=== PATIENT | female | born 1955 | race African-American/Black ===

== ENCOUNTER 2018-08-16 17:48 | Emergency (ER) | payer OTHER ==
[2018-08-16 18:07] VITALS: BP 125/82; PULSE 61; TEMP 98.2; BMI 30.7
--- NOTE | 2018-08-16 18:36 | PDOC ---
History of Present Illness - General History Source: Patient - History of Present Illness Timing/Duration: reports: other Associated Symptoms: reports: cough <Dennis Davalos - Last Filed: 08/16/18 19:22> <Ankur Rivas - Last Filed: 08/28/18 08:42> - General Chief Complaint: Cold Symptoms Stated Complaint: COUGHING Time Seen by Provider: 08/16/18 18:34 Past History - Past Medical History Anemia: No Asthma: No Cancer: No Cardiac Disorders: No CVA: No COPD: No CHF: No Dementia: No Diabetes: No GI Disorders: No Disorders: No HTN: Yes Hypercholesterolemia: No Liver Disease: No Seizures: No Thyroid Disease: No - Surgical History Abdominal Surgery: No Appendectomy: No Cardiac Surgery: No Cholecystectomy: No Lung Surgery: No Neurologic Surgery: No Orthopedic Surgery: No - Immunization History Immunization Up to Date: Yes - Suicide/Smoking/Psychosocial Hx Smoking Status: No Smoking History: Never smoked Have you smoked in the past 12 months: No Number of Cigarettes Smoked Daily: 0 Information on smoking cessation initiated: No Hx Alcohol Use: No Drug/Substance Use Hx: No Substance Use Type: None Hx Substance Use Treatment: No <Dennis Davalos - Last Filed: 08/16/18 19:22> <Ankur Rivas - Last Filed: 08/28/18 08:42> - Past Medical History Allergies/Adverse Reactions: Allergies Allergy/AdvReac Type Severity Reaction Status Date / Time No Known Allergies Allergy Verified 08/16/18 17:56 Home Medications: Ambulatory Orders Azithromycin [Zithromax Tri-Pepito (3 DAYS) -] 500 mg PO DAILY #3 tablet 01/22/16 Ibuprofen 800 mg PO TID #21 tablet 11/23/16 Azithromycin [Zithromax 250mg Tablets -] 250 mg PO DAILY #6 tab 08/16/18 Review of Systems - Review of Systems Constitutional: No: Chills, Fever Respiratory: Yes: Cough. No: Shortness of Breath, Wheezing Cardiac (ROS): No: Chest Tightness <Dennis Davalos - Last Filed: 08/16/18 19:22> *Physical Exam - Vital Signs Last Vital Signs Temp Pulse Resp BP Pulse Ox 98.2 F 61 17 125/82 100 08/16/18 17:57 08/16/18 17:57 08/16/18 17:57 08/16/18 17:57 08/16/18 17:57 - Physical Exam Comments: 08/16/18 19:37 octavio comfortable, currently talking on cell phone General Appearance: Yes: Nourished, Appropriately Dressed. No: Apparent Distress HEENT: positive: Normal Voice Neck: positive: Supple Respiratory/Chest: positive: Wheezing (trace wheezing) Cardiovascular: positive: Regular Rate, S1, S2 Integumentary: positive: Dry, Warm Neurologic: positive: Fully Oriented, Alert, Normal Mood/Affect <Dennis Davalos - Last Filed: 08/16/18 19:22> - Vital Signs Last Vital Signs Temp Pulse Resp BP Pulse Ox 98.2 F 61 17 125/82 100 08/16/18 17:57 08/16/18 17:57 08/16/18 17:57 08/16/18 17:57 08/16/18 17:57 <Ankur Rivas - Last Filed: 08/28/18 08:42> Moderate Sedation - Procedure Monitoring Vital Signs: Procedure Monitoring Vital Signs Temperature 98.2 F 08/16/18 17:57 Pulse Rate 61 08/16/18 17:57 Respiratory Rate 17 08/16/18 17:57 Blood Pressure 125/82 08/16/18 17:57 O2 Sat by Pulse Oximetry (%) 100 08/16/18 17:57 <Dennis Davalos - Last Filed: 08/16/18 19:22> Medical Decision Making - Medical Decision Making 08/16/18 18:34 62 yo F, h/o HTN, former smoker (~>30 ppd, quit 12 years ago), asthma, p/w productive cough x 3 weeks. No hemoptysis, sob, CP, palpitation, leg pain/ swelling, f/c. Seen by pmd last week and prescribed predisone taper w/ no relief. Not given any meds for cough per pt. No CXR done See exam Cough x 3 weeks Former smoker Asthma S/p recent steroid taper Stable, in NAD w/ trace wheezing on exam, declines nebs here CXR neg for acute process -dc w/ supportive tx and zpack given sig tob hx -pmd f/u next week 08/16/18 19:36 <Dennis Davalos Last Filed: 08/16/18 19:22> *DC/Admit/Observation/Transfer <Dennis Davalos - Last Filed: 08/16/18 19:22> <Ankur Rivas - Last Filed: 08/28/18 08:42> Diagnosis at time of Disposition: Cough - Discharge Dispostion Disposition: HOME Condition at time of disposition: Good - Prescriptions Prescriptions: Azithromycin [Zithromax 250mg Tablets -] 250 mg PO DAILY #6 tab - Referrals Referrals: Mali Kent MD [Primary Care Provider] - - Patient Instructions Printed Discharge Instructions: Acute Bronchitis Additional Instructions: Take antibiotics as prescribed. Rest and plenty of fluids and purchase Coricidin [id number] for cough as this medication is safe in patient with high blood pressure. Please follow-up with your PMD next week - Post Discharge Activity
== END 2018-08-16 20:06 | disposition home or self-care (01) ==
LOC: JER 17:48
DX: R05 Cough (principal); I10 Essential (primary) hypertension; Z87.09 Personal history of other diseases of the respiratory system; Z87.891 Personal history of nicotine dependence
CPT/HCPCS: 71046-TC-FY; 99281-25; 99282-25

== ENCOUNTER 2020-03-08 05:24 | Day surgery (SDC) | payer OTHER ==
--- OUTSIDE RECORDS SUMMARY | 2020-02-16 14:12 | XMS ---
:1955 Author Organization [facility] Care Team Providers Name Role Phone ANTONIETA LINDA TEENA Unavailable Unavailable Re-disclosure Warning The records that you are about to access may contain information from federally- assisted alcohol or drug abuse programs. If such information is present, then the following federally mandated warning applies: This information has been disclosed to you from records protected by federal confidentiality rules (42 CFR part 2). The federal rules prohibit you from making any further disclosure of this information unless further disclosure is expressly permitted by the written consent of the person to whom it pertains or as otherwise permitted by 42 CFR part 2. A general authorization for the release of medical or other information is NOT sufficient for this purpose. The Federal rules restrict any use of the information to criminally investigate or prosecute any alcohol or drug abuse patient.The records that you are about to access may contain highly sensitive health information, the redisclosure of which is protected by Article 27-F of the [facility] Public Health law. If you continue you may haveaccess to information: Regarding HIV / AIDS; Provided by facilities licensed or operated by the [facility] Office of Mental Health; or Provided by the [facility] Office for People With Developmental Disabilities. If such information is present, then the following [facility] mandated warning applies: This information has been disclosed to you from confidential records which are protected by state law. State law prohibits you from making any further disclosure of this information without the specific written consent of the person to whom it pertains, or as otherwise permitted by law. Any unauthorized further disclosure in violation of state law may result in a fine or assisted sentence or both. A general authorization for the release of medical or other information is NOT sufficient authorization for further disclosure. Allergies and Adverse Reactions Type Description Substance Reaction Status Data Source(s ) No Known No Known Allergies No Known eCW3 ( [facility]) No Known No Known Allergies No Known eCW3 ( [facility]) No Known No Known Allergies No Known eCW3 ( [facility]) No Known No Known Allergies No Known eCW2 ( [facility]) Encounters Encounter Providers Location Date Indications Data Source(s ) Outpatient [facility] eCW3 ([facility] A28 [facility] 12:00:00 Care) AM EDT - 9 12:00:00 AM EDT Outpatient [facility] eCW3 ([facility] 12:00:00 Care) AM EDT - 9 12:00:00 AM EDT [facility] eCW2 ([facility] [address] 12:00:00 Care) AM EDT Outpatient [facility] eCW3 ([facility] [address] 12:00:00 Care) AM EDT - 9 12:00:00 AM EDT Emergency Attender: DIFF BREATHING [place] ANTONIETA [address] [place] [address], 11:00:00 Care TEENAAdmitter: AM EST [facility] [facility] Meeta Gold 06/11/2018 12:00: 00 eCW2 ([facility] EST Health Care ) [facility] [place] Wendy Gold 06/05/2018 12:00: 00 eCW2 ([facility] EST Health Care ) [facility] 06/05/2018 12:00: 00 eCW2 ([facility] AM EST Health Care ) Evelyn Hdznnate Zapatalyn Shellabarger 04/21/2018 12:00: 00 eCW2 ([facility] AM EST Health Care ) Addis Biju Hdznnate Zapatalyn Shellabarger 03/24/2018 12:00: 00 eCW2 ([facility] AM EDT Health Care ) Addis Biju Hdznnate Zapatarenetta Elizabethabarsocorro 03/13/2018 12:00: 00 eCW2 ([facility] AM EDT Health Care ) Addis Biju Hdznnate Zapatalyn Shellabarsocorro 02/27/2018 12:00: 00 eCW2 ([facility] AM EDT Health Care ) Addis Biju Hdznnate Zapatarenetta Elizabethabashayy 01/30/2018 12:00: 00 eCW2 ([facility] AM EDT Health Care ) Addis Biju Hdznnate Zapatarenetta Elizabethabashayy 01/30/2018 12:00: 00 eCW2 ([facility] AM EDT Health Care ) Addis Biju Hdznnate Zapatalyn Shellabarsocorro 01/22/2018 12:00: 00 eCW2 ([facility] AM EDT Health Care ) Addis Biju Hdznnate Zapatarenetta Elizabethabarsocorro 12/27/2017 12:00: 00 eCW2 ([facility] AM EDT Health Care ) Addis Biju Hdznnate Zapatarenetta Elizabethabarsocorro 12/23/2017 12:00: 00 eCW2 ([facility] AM EDT Health Care ) Addis Biju Hdznnate Zapatalyn Shellabarsocorro 11/15/2017 12:00: 00 eCW2 ([facility] AM EDT Health Care ) Evelyn Hdznnate Zapatalyn Shellabarsocorro 10/28/2017 12:00: 00 eCW2 ([facility] AM EDT Health Care ) Addis Biju Hdznnate Zapatalyn Shellabarsocorro 10/23/2017 12:00: 00 eCW2 ([facility] AM EDT Health Care ) Addis Biju Hdznnate Zapatarenetta Elizabethabarsocorro 10/17/2017 12:00: 00 eCW2 ([facility] AM EDT Health Care ) Evelyn Hdznnate Aguilaramado Elizabethabashayy 10/16/2017 12:00: 00 eCW2 ([facility] AM EDT Health Care ) Evelyn Hdznnate Zapatarenetta Elizabethabarsocorro 09/05/2017 12:00: 00 eCW2 ([facility] AM EDT Health Care ) Evelyn Hdznnate Zapatarenetta Elizabethabashayy 08/23/2017 12:00: 00 eCW2 ([facility] AM EDT Health Care ) Evelyn Hdznnate Zapatarenetta Elizabethabashayy 08/09/2017 12:00: 00 eCW2 ([facility] AM EDT Health Care ) Addis Biju Hdznnate Zapatarenetta Elizabethabashayy 07/10/2017 12:00: 00 eCW2 ([facility] AM EST Health Care ) Addis Biju Hdznnate Zapatarenetta Gold 06/18/2017 12:00: 00 eCW2 ([facility] AM EST Health Care ) Addis Biju Hdznnate Zapatarenetta Elizabethabashayy 05/22/2017 12:00: 00 eCW2 ([facility] AM EST Health Care ) Addis Biju Hdznnate Zapatarenetta Elizabethabashayy 05/21/2017 12:00: 00 eCW2 ([facility] AM EST Health Care ) Addis Biju Hdznnate Zapatarenetta Elizabethabashayy 04/09/2017 12:00: 00 eCW2 ([facility] AM EST Health Care ) Addis Biju Hdznnate Zapatarenetta Elizabethabashayy 03/20/2017 12:00: 00 eCW2 ([facility] AM EDT Health Care ) Addis Biju Hdznkers Wendy Elizabethabashayy 03/13/2017 12:00: 00 eCW2 ([facility] AM EDT Health Care ) Addis Biju Hdznnate Zapatarenetta Elizabethabarsocorro 03/01/2017 12:00: 00 eCW2 ([facility] AM EDT Health Care ) Addis Biju [place] Wendy Elizabethabashayy 02/21/2017 12:00: 00 eCW2 ([facility] AM EDT Health Care ) Addis Biju Hdznnate Zapatalyn Shellabarger 02/13/2017 12:00: 00 eCW2 ([facility] AM EDT Health Care ) Addis Biju Hdznnate Zapatalyn Shellabarger 02/12/2017 12:00: 00 eCW2 ([facility] AM EDT Health Care ) Addis Biju Hdznnate Zapatarenetta Elizabethabarsocorro 01/02/2017 12:00: 00 eCW2 ([facility] AM EDT Health Care ) Addis Biju Hdznnate Zapatalyn Shellabarsocorro 12/04/2016 12:00: 00 eCW2 ([facility] AM EDT Health Care ) Addis Biju Hdznnate Zapatarenetta Elizabethabashayy 11/05/2016 12:00: 00 eCW2 ([facility] AM EDT Health Care ) Addis Biju Hdznnate Zapatarenetta Elizabethabashayy 10/30/2016 12:00: 00 eCW2 ([facility] AM EDT Health Care ) Addis Biju Hdznnate Zapatalyn Shellabarsocorro 10/02/2016 12:00: 00 eCW2 ([facility] AM EDT Health Care ) Addis Biju Hdznnate Zapatarenetta Elizabethabashayy 09/03/2016 12:00: 00 eCW2 ([facility] AM EDT Health Care ) Addis Biju Hdznnate Zapatarenetta Elizabethabarsocorro 08/14/2016 12:00: 00 eCW2 ([facility] AM EDT Health Care ) Addis Biju Hdznnate Zapatalyn Shellabarsocorro 07/31/2016 12:00: 00 eCW2 ([facility] AM EST Health Care ) Addis Biju Hdznnate Zapatalyn Shellabarsocorro 07/20/2016 12:00: 00 eCW2 ([facility] AM EST Health Care ) Addis Biju Hdznkers Wendy Shellabarsocorro 06/20/2016 12:00: 00 eCW2 ([facility] AM EST Health Care ) Addis Biju [place] Wendy Elizabethabarsocorro 05/30/2016 12:00: 00 eCW2 ([facility] AM EST Health Care ) Evelyn Hdznnate Zapatarenetta Elizabethabarsocorro 05/14/2016 12:00: 00 eCW2 ([facility] AM EST Health Care ) Evelyn Hdznnate Zapatarenetta Elizabethabarsocorro 04/13/2016 12:00: 00 eCW2 ([facility] AM EST Health Care ) Evelyn Hdznnate Zapatarenetta Elizabethabashayy 04/12/2016 12:00: 00 eCW2 ([facility] AM EST Health Care ) Addis Biju Hdznnate Zapatarenetta Elizabethabashayy 04/05/2016 12:00: 00 eCW2 ([facility] AM EST Health Care ) Evelyn Hdznnate Zapatarenetta Elizabethabashayy 03/28/2016 12:00: 00 eCW2 ([facility] AM EDT Health Care ) Addis Biju Hdznnate Zapatarenetta Elizabethabashayy 03/06/2016 12:00: 00 eCW2 ([facility] AM EDT Health Care ) Addis Biju Hdznnate Zapatarenetta Elizabethabashayy 02/06/2016 12:00: 00 eCW2 ([facility] AM EDT Health Care ) Addis Biju Hdznnate Zapatarenetta Elizabethabashayy 01/04/2016 12:00: 00 eCW2 ([facility] AM EDT Health Care ) Addis Biju Hdznnate Zapatarenetta Elizabethabashayy 12/30/2015 12:00: 00 eCW2 ([facility] AM EDT Health Care ) Addis Biju [place] Wendy Elizabethabashayy 12/27/2015 12:00: 00 eCW2 ([facility] AM EDT Health Care ) Addis Biju Hdznnate Zapatarenetta Elizabethabarsocorro 12/16/2015 12:00: 00 eCW2 ([facility] AM EDT Health Care ) Evelyn Hdznkermarie Elizabethabashayy 12/08/2015 12:00: 00 eCW2 ([facility] AM EDT Health Care ) Evelyn Ivy [place] Elizabethabashayy 12/06/2015 12:00: 00 eCW2 ([facility] AM EDT Health Care ) Addis Biju Hdznkermarie Cardenasger 12/05/2015 12:00: 00 eCW2 ([facility] AM EDT Health Care ) Evelyn Hdznnate Zapatarenetta Elizabethabarsocorro 11/30/2015 12:00: 00 eCW2 ([facility] AM EDT Health Care ) Evelyn Hdznnate Zapatarenetta Elizabethabarsocorro 10/31/2015 12:00: 00 eCW2 ([facility] AM EDT Health Care ) Evelyn Hdznnate Zapatarenetta Elizabethabashayy 10/18/2015 12:00: 00 eCW2 ([facility] AM EDT Health Care ) Evelyn Hdznnate Zapatarenetta Elizabethabashayy 09/28/2015 12:00: 00 eCW2 ([facility] AM EDT Health Care ) Addis Biju Hdznnate Zapatarenetta Elizabethabashayy 09/27/2015 12:00: 00 eCW2 ([facility] AM EDT Health Care ) Addis Biju Hdznnate Zapatarenetta Elizabethabashayy 08/18/2015 12:00: 00 eCW2 ([facility] AM EDT Health Care ) Addis Biju Hdznnate Zapatarenetta Elizabethabashayy 07/26/2015 12:00: 00 eCW2 ([facility] AM EST Health Care ) Addis Biju Hdznnate Zapatarenetta Elizabethabashayy 07/13/2015 12:00: 00 eCW2 ([facility] AM EST Health Care ) Addis Biju Hdznnate Zapatarenetta Elizabethabashayy 06/08/2015 12:00: 00 eCW2 ([facility] AM EST Health Care ) Addis Biju Hdznnate Zapatalyn Shellabarsocorro 05/09/2015 12:00: 00 eCW2 ([facility] AM EST Health Care ) Addis Biju Hdznkers Wendy Elizabethabashayy 03/29/2015 12:00: 00 eCW2 ([facility] AM EST Health Care ) Addis Biju Hdznkers Wendy Elizabethabarsocorro 02/23/2015 12:00: 00 eCW2 ([facility] AM EDT Health Care ) Addis Biju Hdznkers Wendy Elizabethabashayy 02/11/2015 12:00: 00 eCW2 ([facility] AM EDT Health Care ) Addis Biju Hdznnate Aguilarn Shellabarsocorro 02/11/2015 12:00: 00 eCW2 ([facility] AM EDT Health Care ) Addis Biju Hdznnate Zapatalyn Shellabarsocorro 01/25/2015 12:00: 00 eCW2 ([facility] AM EDT Health Care ) Addis Biju Hdznnate Zaaptarenetta Elizabethabashayy 01/25/2015 12:00: 00 eCW2 ([facility] AM EDT Health Care ) [facility] Wendy Shellabarger 01/11/2015 12:00: 00 eCW2 ([facility] AM EDT Health Care ) Addis Biju Hdznnate Zapatarenetta Elizabethabashayy 12/28/2014 12:00: 00 eCW2 ([facility] EDT Health Care ) Addis Biju [place] Zapatarenetta Elizabethabashayy 11/23/2014 12:00: 00 eCW2 ([facility] AM EDT Health Care ) Addis Biju Hdznnate Zapatarenetta Elizabethabashayy 11/18/2014 12:00: 00 eCW2 ([facility] EDT Health Care ) Addis Biju Hdznnate Zapatarenetta Elizabethabashayy 07/29/2014 12:00: 00 eCW2 ([facility] AM EST Health Care ) Addis Biju Hdznnate Zapatarenetta Elizabethabashayy 07/19/2014 12:00: 00 eCW2 ([facility] AM EST Health Care ) Addis Biju Hdznnate Zapatalyn Shellabashayy 07/14/2014 12:00: 00 eCW2 ([facility] AM EST Health Care ) [facility] Wendy Shellabarsocorro 07/01/2014 12:00: 00 eCW2 ([facility] AM EST Health Care ) [facility] [place] Zapatarenetta Elizabethabashayy 06/08/2014 12:00: 00 eCW2 ([facility] AM EST Health Care ) Addis Biju [place] Wendy Elizabethabashayy 05/25/2014 12:00: 00 eCW2 ([facility] AM EST Health Care ) Evelyn Aguilarn Shellabarsocorro 04/14/2014 12:00: 00 eCW2 ([facility] AM EST Health Care ) Evelyn Aguilaramado Elizabethabarsocorro 04/13/2014 12:00: 00 eCW2 ([facility] AM EST Health Care ) Evelyn Hdznnate Zapatarenetta Elizabethabashayy 03/15/2014 12:00: 00 eCW2 ([facility] AM EDT Health Care ) Addis Biju Zapatarenetta Elizabethabarsocorro 03/12/2014 12:00: 00 eCW2 ([facility] AM EDT Health Care ) Evelyn Hdznnate Zapatarenetta Elizabethabashayy 12/22/2013 12:00: 00 eCW2 ([facility] AM EDT Health Care ) Addis Biju Hdznnate Zapatarenetta Elizabethabashayy 12/21/2013 12:00: 00 eCW2 ([facility] AM EDT Health Care ) Addis Biju Hdznnate Zapatarenetta Elizabethabashayy 11/23/2013 12:00: 00 eCW2 ([facility] AM EDT Health Care ) Addis Biju Hdznnate Zapatarenetta Elizabethabashayy 11/12/2013 12:00: 00 eCW2 ([facility] AM EDT Health Care ) Addis Biju Hdznnate Zapatarenetta Elizabethabashayy 08/03/2013 12:00: 00 eCW2 ([facility] AM EDT Health Care ) Addis Biju Hdznnate Zapatarenetta Elizabethabashayy 07/29/2013 12:00: 00 eCW2 ([facility] AM EST Health Care ) Addis Biju Hdznnate Zapatalyn Shellabarsocorro 02/20/2013 12:00: 00 eCW2 ([facility] AM EDT Health Care ) Addis Biju Hdznnate Zapatarenetta Elizabethabarsocorro 11/13/2012 12:00: 00 eCW2 ([facility] AM EDT Health Care ) Addis Biju Hdznnate Zapatarenetta Elizabethabashayy 11/12/2012 12:00: 00 eCW2 ([facility] AM EDT Health Care ) Addis Biju Hdznnate Zapatarenetta Elizabethabashayy 09/29/2012 12:00: 00 eCW2 ([facility] AM EDT Health Care ) Evelyn Zapatarenetta Elizabethabashayy 09/15/2012 12:00: 00 eCW2 ([facility] AM EDT Health Care ) Evelyn Hdznnate Zapatarenetta Elizabethabashayy 08/25/2012 12:00: 00 eCW2 ([facility] AM EDT Health Care ) Addis Biju Zapatarenetta Gold 08/25/2012 12:00: 00 eCW2 ([facility] AM EDT Health Care ) Evelyn Hdznnate Zapatarenetta Gold 07/07/2012 12:00: 00 eCW2 ([facility] AM EST Health Care ) Addis Biju Hdznnate Zapatarenetta Gold 06/02/2012 12:00: 00 eCW2 ([facility] AM EST Health Care ) Addis Biju Hdznnate Zapatarenetta Gold 05/30/2012 12:00: 00 eCW2 ([facility] AM EST Health Care ) Addis Biju Hdznnate Zapatarenetta Elizabethabashayy 05/29/2012 12:00: 00 eCW2 ([facility] AM EST Health Care ) Addis Biju Hdznnate Zapatarenetta Elizabethabashayy 05/12/2012 12:00: 00 eCW2 ([facility] AM EST Health Care ) Addis Biju [place] Wendy Elizabethabashayy 05/05/2012 12:00: 00 eCW2 ([facility] AM EST Health Care ) Addis Biju Hdznnate Zapatarenetta Elizabethabashayy 04/14/2012 12:00: 00 eCW2 ([facility] AM EST Health Care ) Addis Biju Hdznkers Wendy Elizabethabashayy 04/11/2012 12:00: 00 eCW2 ([facility] AM EST Health Care ) Addis Biju Hdznkermarie Elizabethabashayy 04/10/2012 12:00: 00 eCW2 ([facility] AM EST Health Care ) Addis Biju Hdznkermarie Elizabethabashayy 04/10/2012 12:00: 00 eCW2 ([facility] AM EST Health Care ) Evelyn Hdznnate Zapatalyn Shellabarsocorro 12/10/2011 12:00: 00 eCW2 ([facility] AM EDT Health Care ) Evelyn Hdznnate Zapatalyn Shellabarsocorro 11/30/2011 12:00: 00 eCW2 ([facility] EDT Health Care ) Evelyn Hdznnate Zapatarenetta Elizabethabashayy 11/22/2011 12:00: 00 eCW2 ([facility] AM EDT Health Care ) Evelyn Hdznnate Zapatalyn Shellabarsocorro 11/20/2011 12:00: 00 eCW2 ([facility] EDT Health Care ) Addis Biju Hdznnate Zapatarenetta Elizabethabashayy 11/14/2011 12:00: 00 eCW2 ([facility] EDT Health Care ) Addis Biju Hdznnate Zapatarenetta Elizabethabashayy 11/10/2011 12:00: 00 eCW2 ([facility] AM EDT Health Care ) Addis Biju Hdznnate Zapatarenetta Elizabethabarsocorro 07/25/2011 12:00: 00 eCW2 ([facility] AM EST Health Care ) Addis Biju Hdznnate Zapatarenetta Elizabethabashayy 05/31/2011 12:00: 00 eCW2 ([facility] EST Health Care ) Addis Biju Hdznnate Zapatarenetta Elizabethabashayy 03/29/2011 12:00: 00 eCW2 ([facility] AM EDT Health Care ) Addis Biju Hdznnate Zapatalyn Shellabarsocorro 11/23/2010 12:00: 00 eCW2 ([facility] AM EDT Health Care ) Addis Biju Hdznnate Zapatalyn Shellabarsocorro 11/21/2010 12:00: 00 eCW2 ([facility] AM EDT Health Care ) Addis Biju Hdznkers Wendy Shellabarsocorro 11/02/2010 12:00: 00 eCW2 ([facility] AM EDT Health Care ) Addis Biju [place] Wendy Elizabethabashayy 11/02/2010 12:00: 00 eCW2 ([facility] AM EDT Health Care ) Evelyn Hdznnate Zapatalyn Shellabarsocorro 10/11/2010 12:00: 00 eCW2 ([facility] AM EDT Health Care ) Addis Biju Hdznnate Zapatarenetta Elizabethabarger 09/18/2010 12:00: 00 eCW2 ([facility] AM EDT Health Care ) Evelyn Hdznnate Zapatarenetta Elizabethabashayy 09/18/2010 12:00: 00 eCW2 ([facility] AM EDT Health Care ) Addis Biju Hdznnate Zapatarenetta Elizabethabarsocorro 08/24/2010 12:00: 00 eCW2 ([facility] AM EDT Health Care ) Addis Biju Hdznnate Zapatarenetta Elizabethabashayy 06/23/2010 12:00: 00 eCW2 ([facility] AM EST Health Care ) Addis Biju Hdznnate Zapatarenetta Elizabethabashayy 06/20/2010 12:00: 00 eCW2 ([facility] AM EST Health Care ) Addis Biju Hdznnate Zapatarenetta Elizabethabashayy 05/31/2010 12:00: 00 eCW2 ([facility] AM EST Health Care ) Addis Bjiu Hdznnate Zapatarenetta Elizabethabashayy 05/17/2010 12:00: 00 eCW2 ([facility] AM EST Health Care ) Addis Biju Hdznnate Zapatarenetta Elizabethabashayy 05/15/2010 12:00: 00 eCW2 ([facility] AM EST Health Care ) Addis Biju Hdznnate Zapatalyn Shellabarsocorro 04/27/2010 12:00: 00 eCW2 ([facility] AM EST Health Care ) Addis Biju Hdznnate Zapatalyn Shellabarsocorro 04/26/2010 12:00: 00 eCW2 ([facility] AM EST Health Care ) Addis Biju Hdznkermarie Elizabethabarsocorro 04/04/2010 12:00: 00 eCW2 ([facility] AM EST Health Care ) Addis Biju [place] Nguyen Shellabashayy 03/31/2010 12:00: 00 eCW2 ([facility] AM EDT Health Care ) Addis Biju Aguilarn Shellabarger 03/13/2010 12:00: 00 eCW2 ([facility] AM EDT Health Care ) Addis Biju Aguilaramado Elizabethabarger 03/10/2010 12:00: 00 eCW2 ([facility] AM EDT Health Care ) Evelyn Hdznnate Aguilaramado Elizabethabarsocorro 01/17/2010 12:00: 00 eCW2 ([facility] AM EDT Health Care ) Addis Biju Aguilaramado Elizabethabarsocorro 12/28/2009 12:00: 00 eCW2 ([facility] AM EDT Health Care ) Addis Biju Hdznnate Zapatarenetta Elizabethabarsocorro 12/14/2009 12:00: 00 eCW2 ([facility] AM EDT Health Care ) Addis Biju Hdznnate Zapatarenetta Elizabethabarsocorro 12/09/2009 12:00: 00 eCW2 ([facility] AM EDT Health Care ) Addis Biju Hdznnate Zapatarenetta Elizabethabarsocorro 10/20/2009 12:00: 00 eCW2 ([facility] AM EDT Health Care ) Addis Biju Hdznnate Aguilarn Shellabarsocorro 09/22/2009 12:00: 00 eCW2 ([facility] AM EDT Health Care ) Addis Biju Hdznnate Zapatarenetta Elizabethabarsocorro 09/20/2009 12:00: 00 eCW2 ([facility] AM EDT Health Care ) Addis Biuj Hdznnate Zapatarenetta Elizabethabarsocorro 09/14/2009 12:00: 00 eCW2 ([facility] AM EDT Health Care ) Addis Biju Hdznnate Zpaatalyn Shellabarsocorro 09/14/2009 12:00: 00 eCW2 ([facility] AM EDT Health Care ) Addis Biju Hdznnate Zapatalyn Shellabarsocorro 09/13/2009 12:00: 00 eCW2 ([facility] AM EDT Health Care ) Addis Biju Hdznnate Zapatalyn Shellabarsocorro 09/12/2009 12:00: 00 eCW2 ([facility] AM EDT Health Care ) Addis Biju Hdznnate Elizabethabarger 09/08/2009 12:00: 00 eCW2 ([facility] Health Care ) Evelyn Elizabethabarger 08/18/2009 12:00: 00 eCW2 ([facility] Health Care ) Addis Biju Elizabethabarger 07/15/2009 12:00: 00 eCW2 ([facility] ) Addis Biju Elizabethabarsocorro 07/04/2009 12:00: 00 eCW2 ([facility] ) [facility] Meeta Elizabethabarger 07/04/2009 12:00: 00 eCW2 ([facility] ) Addis Biju Elizabethabarger 06/21/2009 12:00: 00 eCW2 ([facility] ) Addis Biju Elizabethabarsocorro 05/06/2009 12:00: 00 eCW2 ([facility] ) Addis Biju Nguyen Shellabarsocorro 02/21/2009 12:00: 00 eCW2 ([facility] ) [facility] Meeta Elizabethabarsocorro 12/06/2008 12:00: 00 eCW2 ([facility] ) Ruben Aguilaramado Elizabethabarger 11/18/2008 12:00:00 eCW2 ([facility] ) Addis Biju Nguyen Shellabarger 11/09/2008 12:00: 00 eCW2 ([facility] ) Immunizations Vaccine Date Status Description Data Source(s) As of January 1999, a 06/20/2010 completed eCW3 ([facility] 2-dose hepatitis B 08:12:17 PM [facility]) schedule for adolescents (11-15 year olds) was FDA approved for [employer]'s Recombivax HB adult formulation. Use code 43 for the 2-dose. This code should be used for any use of standard adult formulation of hepatitis B vaccine. Tdap 06/20/2010 completed eCW3 ([place] [facility] 03:10:44 PM [facility] Health Care) Novel [id number] completed eCW3 ([facility]) No Known Immunizations completed eCW2 ([facility]) Medications Medication Brand Start Product Dose Route [facility] Hospital Indications Reaction Description Data Name Date Form Instructions Instructions Source(s) Tessalon UNK .0 active Tessalon eCW 3 Perles 100 2018 {caps [place]les 100 ([facility] MG 12:00: ule_a MG [place] 00 AM s_nee Health EST ded} Care) Trazodone Trazod .0 active Trazodone eCW3 Hydrochlori one 2018 {tabl HCl 150 MG ( [place] de 150 MG HCl 12:00: et_at [place] Oral Tablet 150 MG 00 AM _bedt Heal th Trazodone EST chelita} Care) HCl 150 MG Trazodone UNK .0 active Trazodone e CW3 HCl 150 MG 2018 {tabl HCl 150 MG ([facility] 12:00: et_at [place] 00 AM _bedt Health EST chelita} Care) Prednisone Predni .0 active PredniSO NE eCW3 50 MG Oral SONE 2018 {tabl 50 mg ([place] Tablet 50 mg 12:00: et} [place] PredniSONE 00 AM Health 50 mg EDT Care) gabapentin Neuron .0 active Neuronti n eCW3 100 MG Oral tin 2017 {caps 100 mg ([place] Capsule 100 mg 12:00: ule} [place] [Neurontin] 00 AM Health Neurontin EDT Care) 100 mg Ibuprofen Ibupro 02/27/ active 1 tablet eCW2 600 MG Oral fen 2018 with food or ([place] Tablet 600 MG 12:00: milk as [place] 00 AM needed Health EDT Care) gabapentin Neuron 02/27/ active 1 capsul e eCW2 100 MG Oral tin 2018 ([place] Capsule 100 mg 12:00: [place] [Neurontin] 00 AM Health Neurontin EDT Care) 100 mg Ibuprofen Ibupro 02/27/ active Ibuprofen eCW3 600 MG Oral fen 2018 600 MG ([place] Tablet 600 MG 12:00: [place] 00 AM Health EDT Care) Acetaminoph Acetam 02/27/ active 2 table t as eCW2 en 500 MG inophe 2018 needed ([place] Oral Tablet n 500 12:00: [place] Acetaminoph mg 00 AM Health en 500 mg EDT Care) Acetaminoph Acetam 2.0 active Acetami nophe eCW3 en 500 MG inophe 2018 {tabl n 500 mg ([facility] Oral Tablet n 500 12:00: et_as [place] [facility] Acetaminoph mg 00 AM _need Health en 500 mg EDT ed} Care) Estrogens, Premar 08/23/ active 1 tablet eCW2 Conjugated in 0.3 2018 ([place] (SNF) 0.3 MG 12:00: [place] MG Oral 00 AM Health Tablet EDT Care) [Premarin] Premarin 0.3 MG Estrogens, Premar 1.0 active Premarin 0.3 eCW3 Conjugated in 0.3 2018 {tabl MG ([place] (SNF) 0.3 MG 12:00: et} [place] MG Oral 00 AM Health Tablet EDT Care) [Premarin] Premarin 0.3 MG Atenolol 50 Atenol 1.0 active Atenolo l-Chl eCW3 MG / ol-Chl 2018 {tabl orthalidone ([place] Chlorthalid orthal 12:00: et} 50-25 MG [place] one 25 MG idone 00 AM Health Oral Tablet 50-25 EST Care) Atenolol-Ch MG lorthalidon e 50-25 MG valsartan Valsar .0 active Valsartan eCW3 160 MG Oral rodríguez 2018 {tabl 160 MG ([place] Tablet 160 MG 12:00: et} [place] Valsartan 00 AM Health 160 MG EST Care) Atenolol-Ch UNK .0 active Atenolol- Chl eCW3 lorthalidon 2018 {tabl orthalidone ([place] e 50-25 MG 12:00: et} 50-25 MG Kim[place] er 00 AM Health EST Care) Atenolol 50 Atenol 07/10/ active 1 table t eCW2 MG / ol-Chl 2018 ([place] Chlorthalid orthal 12:00: [place] r one 25 MG idone 00 AM Health Oral Tablet 50-25 EST Care) Atenolol-Ch MG lorthalidon e 50-25 MG Atenolol 50 Atenol 1.0 active Atenolo l-Chl eCW3 MG / ol-Chl 2018 {tabl orthalidone ([place] Chlorthalid orthal 12:00: et} 50-25 MG [place] one 25 MG idone 00 AM Health Oral Tablet 50-25 EST Care) Atenolol-Ch MG lorthalidon e 50-25 MG Valsartan UNK .0 active Valsartan e CW3 160 MG 2018 {tabl 160 MG ([place] 12:00: et} [place] 00 AM Health EST Care) valsartan Valsar 07/10/ active 1 tablet eCW2 160 MG Oral rodríguez 2017 ([place] Tablet 160 MG 12:00: [place] Valsartan 00 AM Health 160 MG EST Care) benzonatate Tessal 03/01/ active 1 capsu le as eCW2 100 MG Oral on 2016 needed ([place] Capsule Perles 12:00: [place] [Tessalon 100 mg 00 AM Health Perles] EDT Care) Tessalon Perles 100 mg Albuterol Ipratr 03/01/ active 3 ml eCW2 0.833 MG/ML opium- 2016 ([place] / [place] 12:00: [place] Ipratropium rol 00 AM Health Ceres 0.5-2. EDT Care) 0.167 MG/ML 5 (3) Inhalant MG/3ML Solution Ipratropium -Albuterol 0.5-2.5 (3) MG/3ML benzonatate Tessal .0 active Tessalo n eCW3 100 MG Oral on 2016 {caps Perles 100 ( [place] Capsule Perles 12:00: ule_a mg [place] [Tessalon 100 mg 00 AM s_nee Health Perles] EDT ded} Care) Tessalon Perles 100 mg Albuterol Alb[place] 03/01/ active 3 ml as e CW2 0.83 MG/ML rol 2017 needed ([place] Inhalant Sulfat 12:00: [place] Solution e (2.5 00 AM Health Albuterol MG/3ML EDT Care) Sulfate ) (2.5 0.083% MG/3ML) 0.083% Albuterol [place] 3.0 active Albuterol eCW3 0.83 MG/ML rol 2017 {ml_a Sulfate (2.5 ([place] Inhalant Sulfat 12:00: s_nee MG/3ML) [place] Solution e (2.5 00 AM ded} 0.083% Health Albuterol MG/3ML EDT Care) Sulfate ) (2.5 0.083% MG/3ML) 0.083% Albuterol Ipratr 3.0 active Ipratropi um- eCW3 0.833 MG/ML opium- 2016 {ml} Albuterol ( [place] / [place] 12:00: 0.5-2.5 (3) [facility] [facility] Ipratropium rol 00 AM MG/3ML Healt h Ceres 0.5-2. EDT Care) 0.167 MG/ML 5 (3) Inhalant MG/3ML Solution Ipratropium -Albuterol 0.5-2.5 (3) MG/3ML benzonatate Tessal 02/13/ active 1 capsu le as eCW2 100 MG Oral on 2017 needed ([place] Capsule Perles 12:00: [place] [Tessalon 100 mg 00 AM Health Perles] EDT Care) Tessalon Perles 100 mg benzonatate Tessal 1.0 active Tessalo n eCW3 100 MG Oral on 2017 {caps Perles 100 ( [place] Capsule Perles 12:00: ule_a mg [place] [Tessalon 100 mg 00 AM s_nee Health Perles] EDT ded} Care) Tessalon Perles 100 mg Albuterol Ipratr 3.0 active Ipratropi um- eCW3 0.833 MG/ML opium- 2016 {ml} Albuterol ( [place] / [place] 12:00: 0.5-2.5 (3) [facility] Ipratropium rol 00 AM MG/3ML Healt h Ceres 0.5-2. EDT Care) 0.167 MG/ML 5 (3) Inhalant MG/3ML Solution Ipratropium -Albuterol 0.5-2.5 (3) MG/3ML Prednisone Predni 03/21/ 1.0 active PredniSO NE eCW3 20 MG Oral SONE 2016 {tabl 20 MG ([place] Tablet 20 MG 12:00: et} [place] PredniSONE 00 AM Health 20 MG EDT Care) Prednisone Predni 08/14/ suspend 1 table t eCW2 20 MG Oral SONE 2016 ed ([place] Tablet 20 MG 12:00: [place] PredniSONE 00 AM Health 20 MG EDT Care) 200 ACTUAT Ventol 08/14/ active 2 puffs as eCW2 Albuterol in HFA 2017 needed ([place] 0.09 108 12:00: [place] MG/ACTUAT (90 00 AM Health Metered Base) EDT Care) Dose MCG/AC Inhaler T [Ventolin] Ventolin HFA 108 (90 Base) MCG/ACT 200 ACTUAT Ventol 08/14/ 2.0 active Ventolin HFA eCW3 Albuterol in HFA 2016 {puff 108 (90 ([facility] 0.09 108 12:00: s_as_ Base) [place] MG/ACTUAT (90 00 AM neede MCG/ACT Healt h Metered Base) EDT d} Care) Dose MCG/AC Inhaler T [Ventolin] Ventolin HFA 108 (90 Base) MCG/ACT Albuterol Ipratr 08/14/ active 3 ml eCW2 0.833 MG/ML opium- 2016 ([place] / [place] 12:00: [place] Ipratropium rol 00 AM Health Ceres 0.5-2. EDT Care) 0.167 MG/ML 5 (3) Inhalant MG/3ML Solution Ipratropium -Albuterol 0.5-2.5 (3) MG/3ML Loratadine Clarit 07/20/ active 1 tablet eCW2 10 MG Oral in 2016 ([place] Tablet MG 12:00: [place] [Claritin] 00 AM Health Claritin 10 EST Care) MG Loratadine Clarit 07/20/ 1.0 active Claritin 10 eCW3 10 MG Oral in 2016 {tabl MG ([place] Tablet MG 12:00: et} [place] [Claritin] 00 AM Health Claritin 10 EST Care) MG olopatadine Patano 11/23/ suspend 1 drop into eCW2 1 MG/ML l 0.1 2014 ed affected eye ([facility] Ophthalmic % 12:00: [place] Solution 00 AM Health [Patanol] EDT Care) Patanol 0.1 % Temazepam Temaze 11/23/ active 1 capsule at eCW2 15 MG Oral julien 15 2014 bedtime as ( [place] Capsule MG 12:00: needed [place] 00 AM Health EDT Care) Temazepam Temaze 1.0 active Temazepam 15 eCW3 15 MG Oral julien 15 2014 {caps MG ([place] Capsule MG 12:00: ule_a [place] 00 AM t_bed Health EDT time_ Care) as_ne eded} Temazepam Temaze 1.0 active Temazepam 15 eCW3 15 MG Oral julien 15 2014 {caps MG ([place] Capsule MG 12:00: ule_a [place] 00 AM t_bed Health EDT time_ Care) as_ne eded} olopatadine Patano 1.0 active Patanol 0.1 eCW3 1 MG/ML l 0.1 2014 {drop % ([place] Ophthalmic % 12:00: _into [place] Solution 00 AM _affe Health [Patanol] EDT cted_ Care) Patanol 0.1 eye} % Temazepam UNK .0 active Temazepam 1 5 eCW3 15 MG 2014 {caps MG ([place] 12:00: ule_a [place] 00 AM t_bed Health EDT time_ Care) as_ne eded} Ketotifen Ketoti 05/25/ active 1 drop in to eCW2 0.25 MG/ML fen 2013 affected eye ( [place] Ophthalmic Fumara 12:00: [place] Solution te 00 AM Health Ketotifen 0.025 EST Care) Fumarate % 0.025 % Ketotifen Ketoti 1.0 active Ketotifen eCW3 0.25 MG/ML fen 2013 {drop Fumarate ([place] Ophthalmic [place] 12:00: _into 0.025 % R i[facility] Solution te 00 AM _affe Health Ketotifen 0.025 EST cted_ Care) Fumarate % eye} 0.025 % Omeprazole Omepra 02/20/ suspend 1 capsu le eCW2 20 MG zole 2013 ed ([place] Delayed 20 mg 12:00: [place] Release 00 AM Health Oral EDT Care) Capsule Omeprazole 20 mg Omeprazole Omepra 1.0 active Omeprazo le eCW3 20 MG zole 2012 {caps 20 mg ([place] Delayed 20 mg 12:00: ule} [place] Release 00 AM Health Oral EDT Care) Capsule Omeprazole 20 mg Hydrocodone UNK 08/25/ suspend 1-2 tab let eCW2 -Acetaminop 2012 ed as needed ( deidraon hen 5-500 12:00: for pain [facility] r MG 00 AM Health EDT Care) Hydrocodone UNK 08/25/ active Hydrocodo ne- eCW3 -Acetaminop 2012 Acetaminophe ([place] hen 5-500 12:00: n 5-500 MG Ri beka MG 00 AM Health EDT Care) 120 ACTUAT Floven .0 active Flovent HFA eCW3 Fluticasone t HFA 2011 {puff 220 MCG/ACT ([place] propionate 220 12:00: } [place] 0.22 MCG/AC 00 AM Health MG/ACTUAT T EST Care) Metered Dose Inhaler [Flovent] Flovent HFA 220 MCG/ACT 120 ACTUAT Floven 04/14/ active 1 puff e CW2 Fluticasone t HFA 2011 ([place] propionate 220 12:00: [place] 0.22 MCG/AC 00 AM Health MG/ACTUAT T EST Care) Metered Dose Inhaler [Flovent] Flovent HFA 220 MCG/ACT gabapentin Gabape 04/14/ suspend 1 capsu le eCW2 300 MG Oral ntin 2011 ed ([place] Capsule 300 MG 12:00: [place] Gabapentin 00 AM Health 300 MG EST Care) Multi-Vitam Multi- 1.0 active Multi-V itami eCW3 in - Vitami 2011 {tab( n - ([place] n - 12:00: s)} [place] 00 AM Health EDT Care) Flonase 50 Flonas 2.0 active Flonase 50 eCW3 MCG/ACT e 50 2011 {puff MCG/ACT ([place] MCG/AC 12:00: s_in_ [place] T 00 AM each_ Health EDT nostr Care) il} 200 ACTUAT Ventol 11/29/ suspend 2 puffs eCW2 Albuterol in HFA 2011 ed ([place] 0.09 108 12:00: [place] MG/ACTUAT (90 00 AM Health Metered Base) EDT Care) Dose MCG/AC Inhaler T [Ventolin] Ventolin HFA 108 (90 Base) MCG/ACT Calcium 600 Calciu 11/29/ 1.0 active Calcium 600 eCW3 + D 600-400 m 600 2011 {tabl + D 600-400 ([place] MG-UNIT + D 12:00: et} MG-UNIT [place] 600-40 00 AM Health 0 EDT Care) MG-UNI T Calcium 600 Calciu 11/29/ active 1 table t eCW2 + D 600-400 m 600 2011 ([place] MG-UNIT + D 12:00: [place] 600-40 00 AM Health 0 EDT Care) MG-UNI T 200 ACTUAT Ventol 11/29/ 2.0 active Ventolin HFA eCW3 Albuterol in HFA 2011 {puff 108 (90 ([place] 0.09 108 12:00: s} Base) [place] MG/ACTUAT (90 00 AM MCG/ACT Health Metered Base) EDT Care) Dose MCG/AC Inhaler T [Ventolin] Ventolin HFA 108 (90 Base) MCG/ACT Multi-Vitam Multi- 11/29/ active 1 tab(s ) eCW2 in - Vitami 2011 ([place] - 12:00: [place] 00 AM Health EDT Care) Prempro Prempr 1.0 active Prempro eCW 3 0.3-1.5 MG o 2011 {tabl 0.3-1.5 MG ([place] 0.3-1. 12:00: et} [place] 5 MG 00 AM Health EDT Care) Flonase 50 Flonas 11/29/ active 2 puffs in eCW2 MCG/ACT e 50 2011 each nostril ([place] MCG/AC 12:00: [place] T 00 AM Health EDT Care) Prempro Prempr 11/29/ active 1 tablet eC W2 0.3-1.5 MG o 2011 ([place] 0.3-1. 12:00: [place] 5 MG 00 AM Health EDT Care) NEBULIZER UNK 09/08/ active NEBULIZER e CW3 2009 ([place] 12:00: [place] 00 AM Health EDT Care) nebulizer UNK 09/08/ suspend as directe d eCW2 2009 ed ([place] 12:00: [place] 00 AM Health EDT Care) Lidex 0.05 UNK 02/21/ 1.0 active Lidex 0.05 % eCW3 % 2008 {appl ([place] 12:00: icati [place] 00 AM on_to Health EDT _affe Care) cted_ area} Lidex 0.05 UNK 02/21/ suspend 1 eCW2 % 2008 ed application ([place] 12:00: to affected [place] 00 AM area Health EDT Care) Valsartan UNK active Valsartan eCW 3 160 MG 160 MG ([facility] Care) Albuterol Alb[place] 3.0 active Albuterol e CW3 0.21 MG/ML rol {ml} Sulfate 0.63 ( [place] Inhalant Sulfat MG/3ML [place] Solution e 0.63 Health Albuterol MG/3ML Care) Sulfate 0.63 MG/3ML Atenolol 50 Atenol active Atenolol- Chl eCW3 MG / ol-Chl orthalidone ([place] Chlorthalid orthal 50-25 MG [place] be[place] one 25 MG idone Health Oral Tablet 50-25 Care) Atenolol-Ch MG lorthalidon e 50-25 MG Diclofenac Diclof 1.0 active Diclofenac eCW3 Sodium 50 enac {tabl Sodium 50 mg ( [place] MG Delayed Sodium et_wi [place] Release 50 mg th_fo Health Oral Tablet od_or Care) Diclofenac _milk Sodium 50 } mg Ibuprofen Ibupro active Ibuprofen e CW3 600 MG Oral fen 600 MG ([place] Tablet 600 MG [facility] Care) Albuterol [place] suspend 3 ml eCW2 0.21 MG/ML rol ed ([place] Inhalant Sulfat [place] Solution e 0.63 Health Albuterol MG/3ML Care) Sulfate 0.63 MG/3ML Ibuprofen UNK active Ibuprofen eCW 3 600 MG 600 MG ([facility] Health Care) Atenolol-Ch UNK active Atenolol-Ch l eCW3 lorthalidon orthalidone ( [place] e 50-25 MG 50-25 MG [facility] Care) valsartan Valsar active Valsartan e CW3 160 MG Oral rodríguez 160 MG ([place] Tablet 160 MG [place] Valsartan Health 160 MG Care) Insurance Providers Payer name Policy type Policy ID Covered Covered republican's Policy P norma / Coverage republican ID relationship to Mar[employer] Inf ormation type marroquin OSCAR [id number] ESSENTIAL PLAN 1 2 Problems, Conditions, and Diagnoses Code Display Name Description Problem Type Effective Data Sour ce(s) Dates M54.5 Low back pain at Low back pain at Problem 12/14/2019 eC W3 ([place] multiple sites multiple sites 12:00:00 AM [place] [facility] EDT Care) R63.0 Loss of appetite Loss of appetite Problem 02/23/2019 eC W3 ([place] 12:00:00 AM [place] [facility] EDT Care) G47.00 Insomnia, Insomnia, Problem 02/23/2019 eCW3 ([place] unspecified type unspecified type 12:00:00 AM R [facility] EDT Care) R63.0 Loss of appetite Loss of appetite Problem 02/23/2019 eC W3 ([place] 12:00:00 AM [place] [facility] EDT Care) G47.00 Insomnia, Insomnia, Problem 02/23/2019 eCW3 ([place] unspecified type unspecified type 12:00:00 AM R [facility] EDT Care) G89.29 Other chronic pain Other chronic Problem 09/17/2018 eCW 3 ([place] pain 12:00:00 AM [place] [facility] EDT Care) R73.03 Pre-diabetes Pre-diabetes Problem 09/03/2018 eCW3 ([place] 12:00:00 AM [place] [facility] EDT Care) R73.03 Pre-diabetes Pre-diabetes Problem 09/03/2018 eCW3 ([place] 12:00:00 AM [place] [facility] EDT Care) N95.1 Hot flashes due to Hot flashes due Problem 08/23/2017 e CW3 ([place] menopause to menopause 12:00:00 AM [facility] EDT Care) N95.1 Hot flashes due to Hot flashes due Problem 08/23/2017 e CW2 ([place] menopause to menopause 12:00:00 AM [facility] EDT Care) N95.1 Menopause Menopausal and Problem 08/12/2017 eCW3 ([place] female 12:00:[address] [facility] climacteric EDT Care) states N95.1 Menopause Menopausal and Problem 08/12/2017 eCW2 ([place] female 12:00:00 AM [place] [facility] climacteric EDT Care) states J45.901 Exacerbation of Asthma Problem 08/14/2016 eCW3 ([place] asthma exacerbation 12:00:00 AM [facility] J45.901 Exacerbation of Asthma Problem 08/14/2016 eCW3 ([place] asthma exacerbation 12:00:00 AM [facility] J45.901 Exacerbation of Asthma Problem 08/14/2016 eCW2 ([place] asthma exacerbation 12:00:00 AM [facility] J30.9 Allergic rhinitis Allergic Problem 07/20/2016 eCW3 ([place] rhinitis 12:00:00 AM [facility] EST Care) J30.9 Allergic rhinitis Allergic Problem 07/20/2016 eCW3 ([place] rhinitis 12:00:00 AM [facility] EST Care) J30.9 Allergic rhinitis Allergic Problem 07/20/2016 eCW2 ([place] rhinitis 12:00:00 AM [facility] EST Care) G47.00 Insomnia Insomnia Problem 04/12/2016 eCW3 ([place] 12:00:00 AM [facility] EST Care) I10 Hypertension Hypertension Problem 04/12/2016 eCW3 ([place] 12:00:00 AM [facility] EST Care) I10 Hypertension Hypertension Problem 04/12/2016 eCW3 ([place] 12:00:00 AM [facility] EST Care) G47.00 Insomnia Insomnia Problem 04/12/2016 eCW3 ([place] 12:00:00 AM [facility] EST Care) G47.00 Insomnia Insomnia Problem 04/12/2016 eCW2 ([place] 12:00:00 AM [facility] EST Care) I10 Hypertension Hypertension Problem 04/12/2016 eCW2 ([place] 12:00:00 AM [facility] EST Care) G56.00 Carpal tunnel Carpal tunnel Problem 11/30/2011 eCW3 ([facility] [place] syndrome syndrome 12:00:00 AM [facility] EDT Care) G56.00 Carpal tunnel Carpal tunnel Problem 11/30/2011 eCW3 ([place] syndrome syndrome 12:00:00 AM [place] [facility] EDT Care) G56.00 Carpal tunnel Carpal tunnel Problem 11/30/2011 eCW2 ([place] syndrome syndrome 12:00:00 AM [facility] EDT Care) 493.90 Asthma Asthma Problem eCW2 ([facility]) 477.9 Allergic rhinitis ALLERGIC Problem eCW2 ([place] [facility] RHINITIS NOS [facility]) 530.11 Gastroesophageal GERD Problem eCW2 ([facility] reflux disease [facility]) R06.2 Wheezing WHEEZING Diagnosis 08/01/2018 [place] 11:00:00 AM [facility] J45.901 Unspecified asthma UNSPECIFIED Diagnosis 08/01/2018 [facility] with (acute) ASTHMA WITH 11:00:00 AM [facility] exacerbation (ACUTE) EST Care [employer] I10 Essential (primary) ESSENTIAL Diagnosis 08/01/2018 [facility] hypertension (PRIMARY) 11:00:00 AM [facility] Surgeries/Procedures Procedure Description Date Indications Data Source(s) NEBULIZATION TX. 08/11/2018 eCW3 ([facility] 12:00:00 AM Health Care) EDT No Known procedures No Known procedures e CW2 ([facility]) Results ID Date Data Source [id number] 01/08/2020 01:50:00 PM EDT [facility] Name Value Range Interpretation Description Data Sup porting Code Source(s) Document(s ) SARS [facility] coronavirus 2 RNA This lab was ordered by [facility] and reported by [facility]. Procedure Social History Code Duration Value Status Description Data Source(s ) Smoking 12/24/2019 12:00:00 Former Smoker completed Former Smoker eCW3 ([facility]) Smoking 06/11/2019 12:00:00 Former Smoker completed Former Smoker eCW3 ([facility]) Smoking 02/23/2019 12:00:00 Former Smoker completed Former Smoker eCW3 ([facility]) Former Smoker completed Former Smoker eCW3 ([facility]) Former Smoker completed Former Smoker eCW3 ([facility]) Former Smoker completed Former Smoker eCW3 ([facility]) Smoking Former Smoker completed Former Smoker eCW2 ([facility]) Vital Signs ID Date Data Source UNK Name Value Range Interpretation Code Description Data Source(s) Diastolic blood 65 mm[Hg] 65 mm[Hg] eCW3 ([facility]) Systolic blood 104 mm[Hg] 104 mm[Hg] eCW3 ([facility]) Body temperature 98.5 [degF] 98.5 [degF] eCW3 ( [facility]) Heart rate 20 /min 20 /min eCW3 ([facility]) Body mass index 27.15 kg/m2 27.15 kg/m2 eCW3 ([place] (BMI) [Ratio] [facility]) Body weight 183.9 183.9 [lb_av] eCW3 ([facility] on [lb_av] [facility]) Body height 69 [in_i] 69 [in_i] eCW3 ([facility]) Diastolic blood 87 mm[Hg] 87 mm[Hg] eCW3 ([facility]) Systolic blood 137 mm[Hg] 137 mm[Hg] eCW3 ([facility]) Body temperature 97.9 [degF] 97.9 [degF] eCW3 ( [facility]) Heart rate 20 /min 20 /min eCW3 ([facility]) Body mass index 28.73 kg/m2 28.73 kg/m2 eCW3 ([place] (BMI) [Ratio] [facility]) Body weight 194.6 194.6 [lb_av] eCW3 ([facility] on [lb_av] [facility]) Body height 69 [in_i] 69 [in_i] eCW3 ([facility]) Diastolic blood 58 mm[Hg] 58 mm[Hg] eCW3 ([facility]) Systolic blood 111 mm[Hg] 111 mm[Hg] eCW3 ([facility]) Body temperature 99.3 [degF] 99.3 [degF] eCW3 ( [facility]) Heart rate 20 /min 20 /min eCW3 ([facility]) Body mass index 28.94 kg/m2 28.94 kg/m2 eCW3 ([place] (BMI) [Ratio] [facility]) Body weight 196 [lb_av] 196 [lb_av] eCW3 ([facility]) Body height 69 [in_i] 69 [in_i] eCW3 ([facility]) Diastolic blood 89 mm[Hg] 89 mm[Hg] eCW2 ([facility]) Systolic blood 133 mm[Hg] 133 mm[Hg] eCW2 ([facility] on pressure [facility]) Body temperature 98.6 [degF] 98.6 [degF] eCW2 ( [facility]) Heart rate 20 /min 20 /min eCW2 ([facility]) Body mass index 28.35 kg/m2 28.35 kg/m2 eCW2 ([place] (BMI) [Ratio] [facility]) Body weight 192.0 192.0 [lb_av] eCW2 ([facility] on Measured [lb_av] [facility]) Body height 69 [in_us] 69 [in_us] eCW2 ([facility]) Patient Treatment Plan of Care Planned Activity Planned Date Details Description Data Source (s) Trazodone HCl 150 MG 04/20/2019 12:00:00 eCW3 ([facility]) Acetaminophen 500 MG Oral 02/27/2018 12:00:00 eCW2 ([facility] Tablet [facility]) Ibuprofen 600 MG Oral 02/27/2018 12:00:00 eCW2 ([facility] Tablet [facility]) gabapentin 100 MG Oral 02/27/2018 12:00:00 eCW2 ([facility] Capsule [Neurontin] [facility] are) Atenolol 50 MG / 07/10/2017 12:00:00 eCW2 ([facility] Chlorthalidone 25 MG Oral Critical [facility] hospital) Tablet valsartan 160 MG Oral 07/10/2017 12:00:00 eCW2 ([facility] Tablet [facility]) Temazepam 15 MG Oral 11/23/2014 12:00:00 eCW3 ([facility] Capsule [facility]) Temazepam 15 MG 11/23/2014 12:00:00 eCW3 ([facility]) Temazepam 15 MG Oral 11/23/2014 12:00:00 eCW3 ([facility] Capsule [facility]) Ibuprofen 600 MG eCW3 ([facility])
[2020-03-07 11:31] VITALS: BMI 28.1
--- OUTSIDE RECORDS SUMMARY | 2020-03-08 05:27 | XMS ---
:1955 Author Organization [facility] Support Name Relationship Address Phone WMED, [facility] Unavailable [address] [place] [address] [facility] Unavailable [address] [place] [address] BRETT CHO AUNT [address] [place] [address] BRETT CHO Unavailable Unavailable Unavailable SPENCER VALENTE Unavailable Unavailable Unavailable Re-disclosure Warning The records that [...] is protected by Article 27-F of the [facility] Public Health law. If you continue you may haveaccess to information: Regarding HIV / AIDS; Provided by facilities licensed or operated by the [facility] Office of Mental Health; or Provided by the [facility] Office for People With Developmental Disabilities. If such information is present, then the following [facility] mandated warning applies: This information has [...] law may result in a fine or intermediate sentence or both. A general authorization for the release of medical or other information is NOT sufficient authorization for further disclosure. Encounters Encounter Providers Location Date Indications Data Source(s ) Outpatient [facility] 02/23/2019 eCW3 ([facility] A28 12:00:00 AM Health Care) EDT - 02/23/2019 12:00:00 AM EDT Medications Medication Brand Start Product Dose Route Administrative Pharmacy [facility] Indications Reaction Description Data Name Date Form Instructions Instructions Source(s) Tessalon UNK .0 active Tessalon eCW 3 Perles 100 2018 {caps Perles 100 ([facility] MG 12:00: ule_a [facility] 00 AM s_nee Health EST ded} Care) Trazodone UNK .0 active Trazodone e CW3 HCl 150 MG 2018 {tabl HCl 150 MG ([facility] 12:00: et_at [place] 00 AM _bedt Health EST chelita} Care) Trazodone Trazod .0 active Trazodone eCW3 Hydrochlori one 2018 {tabl HCl 150 MG ( [place] de 150 MG HCl 12:00: et_at [place] Oral Tablet 150 MG 00 AM _bedt Heal th Trazodone EST chelita} Care) HCl 150 MG Insurance Providers Payer name Policy type Policy ID Covered Covered democrat's Policy P norma / Coverage democrat ID relationship to Ceron Inf ormation type ceron [facility] [id number] ESSENTIAL PLAN 1 2 Problems, Conditions, and Diagnoses Code Display Name Description Problem Type Effective Dates Data Source(s) M54.5 Low back pain at Low back pain at Problem 12/14/2019 eC W3 ([place] [facility] R63.0 Loss of appetite Loss of appetite Problem 02/23/2019 eC W3 ([place] 12:00:00 AM EDT [facility]) G47.00 Insomnia, Insomnia, Problem 02/23/2019 eCW3 ([place] unspecified type unspecified type 12:00:00 AM E [facility]) R63.0 Loss of appetite Loss of appetite Problem 02/23/2019 eC W3 ([place] 12:00:00 AM [facility]) G47.00 Insomnia, Insomnia, Problem 02/23/2019 eCW3 ([place] unspecified type unspecified type 12:00:00 AM E [facility]) Results ID Date Data Source [id number] 03/03/2020 03:55:00 PM EDT [facility] Name Value Range Interpretation Description Data Sup porting Code Source(s) Document(s ) SARS [facility] coronavirus 2 RNA This lab was ordered by [facility] and reported by [facility]. ID Date Data Source [id number] 01/08/2020 01:50:00 PM EDT [facility] Name Value Range Interpretation Description Data Sup porting Code Source(s) Document(s ) SARS [facility] coronavirus 2 RNA This lab was ordered by [facility] and reported by [facility]. Procedure Social History Code Duration Value Status Description Data Source(s ) Smoking 12/24/2019 12:00:00 Former Smoker completed Former Smoker eCW3 ([facility]) Smoking 06/11/2019 12:00:00 Former Smoker completed Former Smoker eCW3 ([facility]) Smoking 02/23/2019 12:00:00 Former Smoker completed Former Smoker eCW3 ([facility]) Vital Signs ID Date Data Source UNK Name Value Range Interpretation Code Description Data Source(s) Diastolic blood 65 mm[Hg] 65 mm[Hg] eCW3 ([facility]) Systolic blood 104 mm[Hg] 104 mm[Hg] eCW3 ([facility]) Body temperature 98.5 [degF] 98.5 [degF] eCW3 ( [facility]) Heart rate 20 /min 20 /min eCW3 ([facility]) Body mass index 27.15 kg/m2 27.15 kg/m2 eCW3 ([facility] (BMI) [Ratio] [facility]) Body weight 183.9 183.9 [lb_av] eCW3 ([place] [lb_av] [facility]) Body height 69 [in_i] 69 [in_i] eCW3 ([facility]) Patient Treatment Plan of Care Planned Activity Planned Date Details Description Data Source (s) Trazodone HCl 150 MG 04/20/2019 12:00:00 eCW3 ([facility])
[2020-03-08] MEDS ORDERED: MIDAZOLAM HCL 2 MG/2 ML SINGLE DOSE VIAL ONE (10:03)
[2020-03-08] MEDS ORDERED: BETAMET ACET/BETAMET NA PH 30 MG/5 ML VIAL ONE (10:28)
[2020-03-08] MEDS ORDERED: LIDOCAINE HCL 1%, 10 MG/ML (20ML VIAL) ONE (10:28)
[2020-03-08] MEDS ORDERED: BUPIVACAINE HCL/PF 0.25% (2.5MG/ML) 10 ML VIAL ONE (10:29)
[2020-03-08] MEDS ORDERED: IOHEXOL 180 MG/1 ML ML IJ ONE (10:54)
[2020-03-08] MEDS ORDERED: BUPIVACAINE HCL/PF 2.5 MG/ML - 30 ML VIAL IJ ONE (10:55)
[2020-03-08] MEDS ORDERED: BETAMET ACET/BETAMET NA PH 30 MG/5 ML VIAL IM ONE (10:55)
[2020-03-08] MEDS ORDERED: LIDOCAINE HCL 1%, 10 MG/ML (20ML VIAL) INF ONE (10:55)
[2020-03-08 11:38] VITALS: TEMP 96.2
[2020-03-08 13:27] VITALS: BP 106/78; PULSE 80
--- NOTE | 2020-03-14 21:50 | PROC ---
Procedure Note Procedure: Date of service: 03/08/2020 Preoperative Diagnosis: Low back pain and lumbar radiculopathy on right Postoperative Diagnosis: Same Procedure Performed: Lumbar Tramsforaminal Epidural Steroid Injection (LESI) on Right L4 and L5 with dye under Fluoroscopy Anesthesia: Local / MAC Anesthesiologist: Procedure: I discussed with the patient in detail about the risks, benefits and alternatives to treatment not only limited to infection, headache, numbness, weakness and injury to nerves, blood vessels and muscles. The patient understood, agreed and signed the written consent. The patient was placed in the prone position with the head, abdomen and legs supported with the pillows. The lumbosacral area was prepped and draped with Betadine times three in a sterile fashion. The Right oblique view under the C-arm at L5- S1 level, with a #25 G, 1-1/2 needle 3 ml of 1% Lidocaine was infiltrated in the skin and subcutaneous tissue. A spinal needle was used to approach epidural space via transforaminal approach with intermittent fluoroscopy in both AP and oblique views. After negative aspiration of blood and CSF, omnipaque (radio opaque dye) was used to confirm the spread of dye in epidural space. A solution containing 2.5 ml of Celestone and 1.5 ml of Marcaine 0.25% total volume 4 ml was prepared, 2 ml was injected into the Right L5-S1 level. While the needle was withdrawn, Lidocaine was infiltrated. A similar procedure was repeated at Right L4-5level. Bleeding was checked. Betadine was wiped off. A sterile bandage was placed. The patient tolerated the procedure well. There were no immediate complications. The patient was transferred to the recovery room. The patient was observed for some time and discharged with a family member as per ASU criteria. The patient was told to apply ice at the injection site. If there is any problem, call my office or report to ER. ^ The patient was transferred to the recovery room. The patient was observed for some time and discharged as per ASU criteria. The patient was told to apply ice at the injection site. Follow up appointment was given and also call my office at [phone]. If there is any problem, call my office or report to Emergency Room. Trell Powell M.D.
== END 2020-03-08 12:45 | disposition home or self-care (01) ==
LOC: JASU-SURG 05:24
PROVIDERS: ATTEND Physical Medicine & Rehabilitation
PROC: 3E0R33Z Introduction of Anti-inflammatory into Spinal Canal, Percutaneous Approach (ICD-10-PCS; 2020-03-08)
PROC: 3E0R3BZ Introduction of Anesthetic Agent into Spinal Canal, Percutaneous Approach (ICD-10-PCS; principal; 2020-03-08 10:00)
DX: M54.16 Radiculopathy, lumbar region (principal); M54.5 Low back pain
CPT/HCPCS: 76000-TC-FY

== ENCOUNTER 2020-04-09 10:55 | Emergency (ER) | payer OTHER ==
[2020-04-09 11:01] VITALS: BP 139/76; PULSE 60; TEMP 98.5; BMI 30.5
== END 2020-04-09 13:11 | disposition home or self-care (01) ==
LOC: JERFT 10:55
DX: M54.5 Low back pain (principal)
CPT/HCPCS: 72100-TC-FY; 99283-25

== ENCOUNTER 2020-05-17 04:43 | Day surgery (SDC) | payer OTHER ==
[2020-05-16 17:49] VITALS: BMI 28.1
[2020-05-17] MEDS ORDERED: BUPIVACAINE HCL/PF 0.75% 10 ML VIAL ONE (08:51)
[2020-05-17] MEDS ORDERED: LIDOCAINE HCL/PF 1% SDV 5ML VIAL ONE (08:51)
[2020-05-17] MEDS ORDERED: BUPIVACAINE HCL/PF 0.25% (2.5MG/ML) 10 ML VIAL ONE (08:51)
[2020-05-17] MEDS ORDERED: MIDAZOLAM HCL 2 MG/2 ML SINGLE DOSE VIAL ONE ×2 (09:40→11:08)
[2020-05-17] MEDS ORDERED: IOHEXOL 180 MG/1 ML ML IJ ONE (10:24)
[2020-05-17] MEDS ORDERED: DEXAMETHASONE SOD PHOSPHATE 10 MG/1 ML VIAL IM ONE (10:25)
[2020-05-17] MEDS ORDERED: LIDOCAINE HCL 1% PRESERVATIVE FREE - 30ML VIAL IJ ONE (10:25)
[2020-05-17] MEDS ORDERED: BUPIVACAINE HCL 0.25% 125 MG/50 ML VIAL INF ONE (10:25)
[2020-05-17] MEDS ORDERED: PROPOFOL 20 ML ONE (10:34)
[2020-05-17] MEDS ORDERED: KETAMINE HCL 200 MG/20 ML VIAL ONE (11:08)
[2020-05-17 11:58] VITALS: BP 123/75; PULSE 57; TEMP 96.4
== END 2020-05-17 12:23 | disposition home or self-care (01) ==
LOC: JASU-SURG 04:43
PROVIDERS: ATTEND Physical Medicine & Rehabilitation
PROC: 3E0R33Z Introduction of Anti-inflammatory into Spinal Canal, Percutaneous Approach (ICD-10-PCS; 2020-05-17)
PROC: B01BYZZ Fluoroscopy of Spinal Cord using Other Contrast (ICD-10-PCS; 2020-05-17)
PROC: 3E0R3BZ Introduction of Anesthetic Agent into Spinal Canal, Percutaneous Approach (ICD-10-PCS; principal; 2020-05-17 09:30)
DX: M54.16 Radiculopathy, lumbar region (principal); M54.5 Low back pain
CPT/HCPCS: 76000-TC-FY; J1100

== ENCOUNTER 2020-08-09 05:25 | Day surgery (SDC) | payer OTHER ==
[2020-08-08 12:22] VITALS: BMI 30.2
[2020-08-09] MEDS ORDERED: PROPOFOL 20 ML ONE (11:07)
[2020-08-09] MEDS ORDERED: KETOROLAC TROMETHAMINE 30 MG/1 ML VIAL ONE (11:13)
[2020-08-09] MEDS ORDERED: IOHEXOL 180 MG/1 ML ML IJ ONE (11:19)
[2020-08-09] MEDS ORDERED: BUPIVACAINE HCL/PF 2.5 MG/ML - 30 ML VIAL IJ ONE (11:19)
[2020-08-09] MEDS ORDERED: DEXAMETHASONE SOD PHOSPHATE 10 MG/1 ML VIAL IVPUSH ONE (11:19)
[2020-08-09] MEDS ORDERED: LIDOCAINE HCL 1% PRESERVATIVE FREE - 30ML VIAL IJ ONE (11:19)
[2020-08-09 14:05] VITALS: BP 133/93; PULSE 64; TEMP 97.4
== END 2020-08-09 12:00 | disposition home or self-care (01) ==
LOC: JASU-SURG 05:25
PROVIDERS: ATTEND Physical Medicine & Rehabilitation
PROC: 3E0R33Z Introduction of Anti-inflammatory into Spinal Canal, Percutaneous Approach (ICD-10-PCS; 2020-08-09)
PROC: B01BYZZ Fluoroscopy of Spinal Cord using Other Contrast (ICD-10-PCS; 2020-08-09)
PROC: 3E0R3BZ Introduction of Anesthetic Agent into Spinal Canal, Percutaneous Approach (ICD-10-PCS; principal; 2020-08-09 10:30)
DX: M54.16 Radiculopathy, lumbar region (principal); M54.5 Low back pain
CPT/HCPCS: 76000-TC-FY; J1100

== ENCOUNTER 2020-10-28 11:35 | Emergency (ER) | payer OTHER ==
[2020-10-28 11:39] VITALS: BP 160/70; PULSE 53; TEMP 98.4; BMI 30.7
[2020-10-28] MEDS ORDERED: KETOROLAC TROMETHAMINE 60 MG/2 ML VIAL ONE (12:07)
[2020-10-28] MEDS ORDERED: KETOROLAC TROMETHAMINE 60 MG/2 ML VIAL IM ONE (12:09)
== END 2020-10-28 12:47 | disposition home or self-care (01) ==
LOC: JERFT 11:35
PROC: 3E0233Z Introduction of Anti-inflammatory into Muscle, Percutaneous Approach (ICD-10-PCS; principal; 2020-10-28)
DX: M25.562 Pain in left knee (principal)
CPT/HCPCS: 96372; 99284-25

== ENCOUNTER 2021-02-20 04:30 | Day surgery (SDC) | payer OTHER ==
[2021-02-16 17:28] VITALS: BMI 30.7
[~2021-02-20 04:30] MED LIST: BUPIVACAINE HCL/PF 0.25% (2.5MG/ML) 10 ML VIAL IJ ONE; DEXAMETHASONE SOD PHOSPHATE 4 MG/1 ML VIAL NR ONE; IOHEXOL 180 MG/1 ML ML IJ ONE; LIDOCAINE HCL 1%, 10 MG/ML (20ML VIAL) NR ONE
[2021-02-20] MEDS ORDERED: MIDAZOLAM HCL 2 MG/2 ML SINGLE DOSE VIAL ONE (10:09)
[2021-02-20] MEDS ORDERED: DEXAMETHASONE SOD PHOSPHATE 10 MG/1 ML VIAL ONE (10:34)
[2021-02-20] MEDS ORDERED: PROPOFOL 20 ML ONE (10:41)
[2021-02-20] MEDS ORDERED: IOHEXOL 180 MG/1 ML ML IJ ONE (10:51)
[2021-02-20] MEDS ORDERED: DEXAMETHASONE SOD PHOSPHATE 10 MG/1 ML VIAL IVPUSH ONE ×2 (10:51→10:52)
[2021-02-20] MEDS ORDERED: LIDOCAINE HCL 1%, 10 MG/ML (20ML VIAL) NR ONE (10:51)
[2021-02-20] MEDS ORDERED: BUPIVACAINE HCL/PF 0.25% (2.5MG/ML) 10 ML VIAL IJ ONE (10:51)
[2021-02-20] MEDS ORDERED: BUPIVACAINE HCL/PF 0.5% (5MG/ML) 10 ML VIAL IJ ONE (10:52)
[2021-02-20] MEDS ORDERED: FLUMAZENIL 0.5 MG/5 ML VIAL ONE (11:05)
[2021-02-20 13:04] VITALS: TEMP 98.6
[2021-02-20 13:35] VITALS: BP 143/79; PULSE 62
== END 2021-02-20 12:45 | disposition home or self-care (01) ==
LOC: JASU-SURG 04:30
PROVIDERS: ATTEND Physical Medicine & Rehabilitation
PROC: 3E0T33Z Introduction of Anti-inflammatory into Peripheral Nerves and Plexi, Percutaneous Approach (ICD-10-PCS; 2021-02-20)
PROC: BR16YZZ Fluoroscopy of Lumbar Facet Joint(s) using Other Contrast (ICD-10-PCS; 2021-02-20)
PROC: 3E0T3BZ Introduction of Anesthetic Agent into Peripheral Nerves and Plexi, Percutaneous Approach (ICD-10-PCS; principal; 2021-02-20 10:00)
DX: M47.896 Other spondylosis, lumbar region (principal); M54.5 Low back pain
CPT/HCPCS: 76000-TC-FY; J1100

== ENCOUNTER 2021-07-14 06:32 | Day surgery (SDC) | payer OTHER ==
[2021-07-11 14:55] VITALS: BMI 30.2
[2021-07-14] MEDS ORDERED: BUPIVACAINE HCL/PF 0.25% (2.5MG/ML) 10 ML VIAL ONE (07:20)
[2021-07-14] MEDS ORDERED: ONDANSETRON 4 MG/2 ML VIAL ONE (07:33)
[2021-07-14] MEDS ORDERED: MIDAZOLAM HCL 2 MG/2 ML SINGLE DOSE VIAL ONE ×2 (07:33)
[2021-07-14] MEDS ORDERED: PROPOFOL 20 ML ONE (07:33)
[2021-07-14] MEDS ORDERED: oxyCODONE HCL 5 MG TABLET PO PRN (08:35)
[2021-07-14] MEDS ORDERED: ONDANSETRON 4 MG/2 ML VIAL IVPUSH PRN (08:35)
[2021-07-14] MEDS ORDERED: LACTATED RINGERS SOLUTION 1,000 ML IV SCH (08:45)
[2021-07-14 09:50] VITALS: TEMP 97.4
[2021-07-14 10:15] VITALS: BP 123/72; PULSE 55
== END 2021-07-14 11:18 | disposition home or self-care (01) ==
LOC: FASU 06:32
PROVIDERS: ATTEND Orthopaedic Surgery Sports Medicine
PROC: 0SBD4ZZ Excision of Left Knee Joint, Percutaneous Endoscopic Approach (ICD-10-PCS; principal; 2021-07-14 08:05)
DX: S83.282A Other tear of lateral meniscus, current injury, left knee, initial encounter (principal); M94.262 Chondromalacia, left knee; M65.862 Other synovitis and tenosynovitis, left lower leg; X58.XXXA Exposure to other specified factors, initial encounter; Y93.9 Activity, unspecified; Y92.9 Unspecified place or not applicable
CPT/HCPCS: 94760

== ENCOUNTER 2022-01-22 04:16 | Day surgery (SDC) | payer OTHER ==
[~2022-01-22 04:16] MED LIST changes: -BUPIVACAINE HCL/PF 0.25% (2.5MG/ML) 10 ML VIAL IJ ONE; +BUPIVACAINE HCL/PF 0.5% (5MG/ML) 10 ML VIAL IJ ONE; +DEXAMETHASONE SOD PHOSPHATE 10 MG/1 ML VIAL IVPUSH ONE; -DEXAMETHASONE SOD PHOSPHATE 4 MG/1 ML VIAL NR ONE; -IOHEXOL 180 MG/1 ML ML IJ ONE; +LIDOCAINE HCL 1% PRESERVATIVE FREE - 30ML VIAL IJ ONE; -LIDOCAINE HCL 1%, 10 MG/ML (20ML VIAL) NR ONE
[2022-01-22 07:33] VITALS: RESP 18; BMI 30.7
[2022-01-22] MEDS ORDERED: BUPIVACAINE HCL/PF 0.25% (2.5MG/ML) 10 ML VIAL ONE (07:40)
[2022-01-22] MEDS ORDERED: DEXAMETHASONE SOD PHOSPHATE 10 MG/1 ML VIAL ONE (07:41)
[2022-01-22] MEDS ORDERED: BUPIVACAINE HCL/PF 0.5% (5MG/ML) 10 ML VIAL ONE (07:41)
[2022-01-22] MEDS ORDERED: LIDOCAINE HCL/PF 1% SDV 5ML VIAL ONE (07:41)
[2022-01-22] MEDS ORDERED: MIDAZOLAM HCL 2 MG/2 ML SINGLE DOSE VIAL ONE (10:05)
[2022-01-22] MEDS ORDERED: PROPOFOL 20 ML ONE (10:20)
[2022-01-22] MEDS ORDERED: LIDOCAINE HCL 1% PRESERVATIVE FREE - 30ML VIAL IJ ONE ×2 (10:25)
[2022-01-22 10:56] VITALS: BP 130/80; PULSE 60; TEMP 98
== END 2022-01-22 11:45 | disposition home or self-care (01) ==
LOC: JASU-SURG 04:16
PROVIDERS: ATTEND Physical Medicine & Rehabilitation
PROC: 3E0T3TZ Introduction of Destructive Agent into Peripheral Nerves and Plexi, Percutaneous Approach (ICD-10-PCS; principal; 2022-01-22 09:30)
DX: Z53.8 Procedure and treatment not carried out for other reasons (principal); M54.16 Radiculopathy, lumbar region
CPT/HCPCS: 76000-TC-FY; J1100

== ENCOUNTER 2022-03-08 19:59 | Emergency (ER) | payer OTHER ==
[2022-03-08 20:18] VITALS: BP 101/60; PULSE 82; RESP 17; TEMP 98; BMI 27.7
[2022-03-08] MEDS ORDERED: KETOROLAC TROMETHAMINE 30 MG/1 ML VIAL IM ONE (20:45)
[2022-03-08] MEDS ORDERED: KETOROLAC TROMETHAMINE 30 MG/1 ML VIAL ONE (20:50)
== END 2022-03-08 21:06 | disposition home or self-care (01) ==
LOC: JERFT 19:59
PROC: 3E0233Z Introduction of Anti-inflammatory into Muscle, Percutaneous Approach (ICD-10-PCS; principal; 2022-03-08)
DX: M54.42 Lumbago with sciatica, left side (principal)
CPT/HCPCS: 96372; 99284-25

== ENCOUNTER 2022-07-23 04:19 | Day surgery (SDC) | payer OTHER ==
[2022-07-19 15:22] VITALS: BMI 25.7
[~2022-07-23 04:19] MED LIST changes: +BUPIVACAINE HCL/PF 0.25% (2.5MG/ML) 10 ML VIAL IJ ONE; -BUPIVACAINE HCL/PF 0.5% (5MG/ML) 10 ML VIAL IJ ONE; +IOHEXOL 180 MG/1 ML ML IJ ONE; -LIDOCAINE HCL 1% PRESERVATIVE FREE - 30ML VIAL IJ ONE; +LIDOCAINE HCL 1%, 10 MG/ML (20ML VIAL) NR ONE
[2022-07-23] MEDS ORDERED: DEXAMETHASONE SOD PHOSPHATE 10 MG/1 ML VIAL ONE (07:20)
[2022-07-23] MEDS ORDERED: LIDOCAINE HCL/PF 1% SDV 5ML VIAL ONE (07:20)
[2022-07-23] MEDS ORDERED: BUPIVACAINE HCL/PF 0.25% (2.5MG/ML) 10 ML VIAL ONE (07:20)
[2022-07-23 11:02] VITALS: RESP 20
[2022-07-23] MEDS ORDERED: MIDAZOLAM HCL 2 MG/2 ML SINGLE DOSE VIAL ONE (12:19)
[2022-07-23] MEDS ORDERED: IOHEXOL 180 MG/1 ML ML IJ ONE (12:26)
[2022-07-23] MEDS ORDERED: BUPIVACAINE HCL/PF 0.25% (2.5MG/ML) 10 ML VIAL IJ ONE (12:27)
[2022-07-23] MEDS ORDERED: LIDOCAINE HCL 1%, 10 MG/ML (20ML VIAL) NR ONE (12:27)
[2022-07-23] MEDS ORDERED: DEXAMETHASONE SOD PHOSPHATE 10 MG/1 ML VIAL IVPUSH ONE (12:27)
[2022-07-23 14:02] VITALS: BP 139/89; PULSE 53; TEMP 97.5
== END 2022-07-23 13:15 | disposition home or self-care (01) ==
LOC: JASU-SURG 04:19
PROVIDERS: ATTEND Physical Medicine & Rehabilitation
PROC: 3E0R3BZ Introduction of Anesthetic Agent into Spinal Canal, Percutaneous Approach (ICD-10-PCS; 2022-07-23)
PROC: 3E0R33Z Introduction of Anti-inflammatory into Spinal Canal, Percutaneous Approach (ICD-10-PCS; principal; 2022-07-23 12:30)
DX: M54.16 Radiculopathy, lumbar region (principal); M54.50 Low back pain, unspecified
CPT/HCPCS: J1100

== ENCOUNTER 2024-03-03 04:17 | Day surgery (SDC) | payer MEDICARE, OTHER ==
[2024-02-28 15:40] VITALS: BMI 29.0
[2024-03-03] MEDS ORDERED: DEXAMETHASONE SOD PHOSPHATE 10 MG/1 ML VIAL ONE (07:43)
[2024-03-03] MEDS ORDERED: LIDOCAINE HCL/PF 1% SDV 5ML VIAL ONE (07:43)
[2024-03-03] MEDS ORDERED: BUPIVACAINE HCL/PF 0.25% (2.5MG/ML) 10 ML VIAL ONE (07:54)
[2024-03-03] MEDS ORDERED: KETOROLAC TROMETHAMINE 30 MG/1 ML VIAL ONE (11:57)
[2024-03-03] MEDS ORDERED: ONDANSETRON 4 MG/2 ML VIAL ONE (11:57)
[2024-03-03] MEDS ORDERED: MIDAZOLAM HCL 2 MG/2 ML SINGLE DOSE VIAL ONE ×2 (11:59→12:27)
[2024-03-03] MEDS: LIDOCAINE HCL 1% PRESERVATIVE FREE - 30ML VIAL IJ ONE (12:36)
[2024-03-03] MEDS: IOHEXOL 180 MG/1 ML ML IJ ONE (12:38)
[2024-03-03] MEDS: DEXAMETHASONE SOD PHOSPHATE 10 MG/1 ML VIAL IM ONE (12:39)
[2024-03-03] MEDS: BUPIVACAINE HCL/PF 0.25% (2.5MG/ML) 10 ML VIAL IJ ONE (12:39)
[2024-03-03 13:51] VITALS: RESP 20; TEMP 97.3
[2024-03-03 15:55] VITALS: BP 118/72; PULSE 75
== END 2024-03-03 14:45 | disposition home or self-care (01) ==
LOC: JASU-SURG 04:17
PROVIDERS: ATTEND Physical Medicine & Rehabilitation
PROC: 3E0R3BZ Introduction of Anesthetic Agent into Spinal Canal, Percutaneous Approach (ICD-10-PCS; 2024-03-03)
PROC: 3E0R33Z Introduction of Anti-inflammatory into Spinal Canal, Percutaneous Approach (ICD-10-PCS; principal; 2024-03-03 11:00)
DX: M54.16 Radiculopathy, lumbar region (principal); M54.50 Low back pain, unspecified
CPT/HCPCS: 76000-TC-FY; J1100

== ENCOUNTER 2024-06-12 10:54 | Emergency (ER) | payer MEDICARE, OTHER ==
[2024-06-12 11:28] VITALS: BP 160/83; PULSE 79; RESP 22; TEMP 97.9; BMI 27.4
== END 2024-06-12 13:17 | disposition home or self-care (01) ==
LOC: JER 10:54
DX: R05.9 Cough, unspecified (principal); R09.81 Nasal congestion; B33.8 Other specified viral diseases; B97.4 Respiratory syncytial virus as the cause of diseases classified elsewhere; Z20.822 Contact with and (suspected) exposure to COVID-19
CPT/HCPCS: 0241U-QW; 71046-TC-FY; 99284-25

== ENCOUNTER 2024-08-19 13:55 | Emergency (ER) | payer OTHER ==
[2024-08-19 14:06] VITALS: BP 174/92; PULSE 79; RESP 18; TEMP 97.7; BMI 28.8
[2024-08-19] MEDS ORDERED: LIDOCAINE 4% PATCH TP ONE (15:50)
[2024-08-19] MEDS ORDERED: IBUPROFEN 600 MG TABLET (FP) PO ONE (15:51)
[2024-08-19] MEDS ORDERED: ACETAMINOPHEN 500 MG TABLET (FP) ONE (15:51)
[2024-08-19] MEDS: IBUPROFEN 600 MG TABLET (FP) PO ONE (15:55)
[2024-08-19] MEDS: LIDOCAINE 4% PATCH TP ONE (15:56)
[2024-08-19] MEDS: ACETAMINOPHEN 500 MG TABLET (FP) PO ONE (15:56)
== END 2024-08-19 16:01 | disposition home or self-care (01) ==
LOC: JERFT 13:55
DX: S46.811A Strain of other muscles, fascia and tendons at shoulder and upper arm level, right arm, initial encounter (principal); X50.0XXA Overexertion from strenuous movement or load, initial encounter; Y99.0 Civilian activity done for income or pay
CPT/HCPCS: 73030-TC-RT-FY; 99283-25